=== PATIENT | female | born 1985 | race Caucasian/White ===

== ENCOUNTER 2018-07-13 19:29 | Emergency (ER) | payer MEDICAID ==
[~2018-07-13] VITALS: Ht 165.1 cm; Wt 65.1 kg
[2018-07-13] MEDS ORDERED: LIDOCAINE 1%-EPI 1:100K, 20ML SQ ONE (20:00)
[2018-07-13] MEDS ORDERED: CLINDAMYCIN 300 MG CAPSULE PO ONE (20:00)
[2018-07-13] MEDS ORDERED: OXYcodone/APAP 5/325MG TABLET PO ONE (20:00)
[2018-07-13] MEDS ORDERED: OXYcodone/APAP 5/325MG TABLET ONE (20:05)
[2018-07-13] MEDS ORDERED: LIDOCAINE-MPF 1%, 5ML ONE (20:05)
--- NOTE | 2018-07-13 20:08 | NUR ---
TO U/S PER OPAL
[2018-07-13] MEDS ORDERED: CLINDAMYCIN 300 MG CAPSULE ONE (20:13)
--- NOTE | 2018-07-13 20:24 | NUR ---
LIDOCAINE GIVEN TO PROVIDER FOR INJECTION.
--- NOTE | 2018-07-13 21:37 | NUR ---
PROVIDER BS FOR I&D
[2018-07-13] MEDS ORDERED: LIDOCAINE 1%, 10ML INFIL ONE (22:00)
[2018-07-13 22:50] VITALS: BP 113/79
== END 2018-07-13 22:51 | disposition home or self-care (01) ==
LOC: ED 22:40
DX: L03.115 Cellulitis of right lower limb (principal); F11.10 Opioid abuse, uncomplicated
CPT/HCPCS: 10060; 99284